=== PATIENT | male | born 1975 | race Caucasian/White ===

== ENCOUNTER 2018-06-19 06:08 | Emergency (ER) | payer OTHER, SELFPAY ==
[2018-06-19 06:10] VITALS: BP 147/77; PULSE 59; RESP 18; TEMP 36.7; O2SAT 98; BMI 35.4
--- NOTE | 2018-06-19 06:21 | ED.VISSUMM ---
- ER Visit Summary Date of Service: 06/19/18 Chief Complaint: [Redness and drainage from left eye] History of Present Illness: The patient is a 42 M [presents the emergency department complaint of redness and drainage from the left eye that started this morning. Patient denies any foreign body sensation. Patient denies any trauma. He denies any fever or recent illness. Patient denies any sick contacts.] Physical Examination: [HEENT-PERRLA, EOMI. Cranial nerves II through XII grossly intact. TMs clear. Mucous membranes moist. No adenopathy. Left eye-she has diffuse conjunctival erythema. Patient has yellowish thick drainage noted. Extraocular muscle movement is normal and painless. No evidence for periorbital cellulitis. Eyelids were everted no foreign bodies noted. Cardiovascular-regular rate and rhythm without murmur or ectopy Lungs-clear to auscultation, chest wall stable without crepitus or subcu emphysema Abdomen-normoactive bowel sounds, soft, nontender, no rebound or rigidity, no peritoneal signs. Extremities-intact ?4, normal range of motion, normal pulses, atraumatic] Test Results: [Visual acuity was 20/20 with left eye, 20/20 right eye, 20/20 both eyes] Emergency Department Course and Treatment: [Patient was started on gentamicin ophthalmic drops] Treatment Plan: [Patient will be treated with gentamicin ophthalmic drops and referred to ophthalmology for follow-up] Disposition: [Discharged home stable condition.] Impression: [Left eye conjunctivitis This note was generated with [employer] dictation software. It may contain incorrect words, spelling, and punctuation that were not noted in review of the chart prior to signing ED Disposition - Plan for ED Patient: Chief Complaint: Eye Problem Referrals: Care Physician,No Primary [Primary Care Provider] -
--- NOTE | 2018-06-19 06:23 | ED.DEP ---
ED Disposition - Plan for ED Patient: Chief Complaint: Eye Problem Instructions: ED Conjunctivitis Bacterial Referrals: Care Physician,No Primary [Primary Care Provider] - Lavell Charles MD [STAFF PHYSICIAN] - 1 Day for another exam
[2018-06-19 06:34] VITALS: RESP 18
[2018-06-19] MEDS: Gentamicin Sulfate 1 OPTH.BTL 2 DRP LEFT EYE (06:34)
== END 2018-06-19 06:34 | disposition home or self-care (01) ==
PROVIDERS: Emergency Provider Emergency Medicine
DX: H10.9 Unspecified conjunctivitis (principal)
CPT/HCPCS: 99283

== ENCOUNTER → 2023-11-04 | Outpatient (CLI) | payer OTHER, SELFPAY ==
--- OUTSIDE RECORDS SUMMARY | 2023-11-04 16:36 | XMS RPT_ITS | CCD ---
Author Name Unknown Address [email or web address] [place] [address] Organization [facility] Care Team Providers Care Pipe Organ Technician Name Role Phone STEPHANIE WU, MAGGIE Maldonado Referring Unav ailable AUGUSTINE MERCADO MD Primary Care Unavailab MAGGIE Jenkins CNP Attending Unav ailable MAGGIE BROWN CNP Referring Unav ailable ROGELIO BRISENO, AUGUSTINE Mari Primary Care Unavailab MAGGIE Jenkins CNP Attending Unav ailable Results Test Name Value Interpretation Reference Range Facil ity Encounters Encounter Date Encounter Type Care Provider Facility Start: 10-01-2023 End: 10-02-2023 ambulatory MAGGIE BROWN CNP Facility:[id number] Start: 09-04-2023 End: 09-05-2023 ambulatory MAGGIE L STEPHANIE WU Facility:[id number] Payers Date Payer Category Payer Unknown [id number] 1975 Unknown [id number] Private Health Insurance [id number] Self-pay Summary Purpose Family History No Family History Records Found Advance Directives No Advanced Directives Records Found Additional Source Comments (unrecognized sect ion and content) No Status Records Found INFORMATION SOURCE (unrecogn ized section and content) FOR RECORDS PERTAINING TO PATIENTS WHO ARE OR HAVE BEEN ENROLLED IN A CHEMICAL DEPENDENCY/SUBSTANCEABUSE PROGRAM, SOME INFORMATION MAY BE OMITTED. This clinical summary was aggregated from multiple sources. Caution should be exercised in using it in the provision of clinical care. This summary normalizes information from multiple sources, and as a consequence, information in this document may materially change the coding, format and clinical context of patient data. In addition, data may be omitted in some cases. CLINICAL DECISIONS SHOULD BE BASED ON THE PRIMARY CLINICAL RECORDS. [facility] [employer] [facility]. provides no warranty or guarantee of the accuracy or completeness of information in this document.
== END | disposition home or self-care (01) ==
LOC: LABSPEC 15:18
PROVIDERS: Referring Provider Physician Assistant; Visit Provider Physician Assistant
DX: J02.9 Acute pharyngitis, unspecified (principal)
CPT/HCPCS: 87070